=== PATIENT | male | born 1945 | race American Indian/Alaskan Native ===

== ENCOUNTER 2017-06-20 22:10 | Inpatient (IN) | payer MEDICARE, OTHER ==
[2017-06-20] MEDS ORDERED: Dextrose 5%/0.45% NS 1,000 ML IV SCH (22:30)
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
[2017-06-20 22:57] LABS: VENOUS BLOOD GAS BASE EXCESS 7.5 mmol/L (0.0-2.0); VENOUS BLOOD PH 7.43 (7.32-7.43)
[2017-06-20 23:08] LABS: ALB/GLOB RATIO 1.1 (1.1-1.8); ALKALINE PHOSPHATASE 90 U/L (38-126); ALT/SGPT 29 U/L (7-56); AST/SGOT 65 U/L (17-59); BASO # 0.01 K/mm3 (0.0-2.0); BASO % 0.1 % (0.0-3.0); BILIRUBIN,TOTAL 0.8 mg/dL (0.2-1.3); BLOOD UREA NITROGEN 10 mg/dL (7-21); CALCIUM 9.4 mg/dL (8.4-10.5); CARBON DIOXIDE 28 mmol/L (21-33); CHLORIDE 100 mmol/L (98-107); GFR AFRICAN-AMERICAN > 60; GLUCOSE,RANDOM 127 mg/dL (70-110); GRAN # 11.18 (1.4-6.5); GRAN % 85.8 % (50.0-68.0); HEMATOCRIT 39.7 % (42.0-52.0); LYMPH # 0.8 (1.2-3.4); LYMPH % 6.3 % (22.0-35.0); MAGNESIUM 1.8 mg/dL (1.7-2.2); MEAN CELL VOLUME 85.6 fl (80.0-105.0); MEAN CORPUSCULAR HEMOGLOBIN 28.4 pg (25.0-35.0); MEAN CORPUSCULAR HGB CONC 33.2 g/dl (31.0-37.0); MEAN PLATELET VOLUME 9.6 fl (7.0-11.0); MONO % 7.8 % (1.0-6.0); PHOSPHOROUS 2.4 mg/dL (2.5-4.5); POTASSIUM 3.4 mmol/L (3.6-5.0); RED CELL DISTRIBUTION WIDTH 14.8 % (11.5-14.5); SODIUM 140 mmol/L (132-148); TOTAL PROTEIN 7.7 g/dL (5.8-8.3)
[2017-06-20] MEDS ORDERED: Potassium Chloride 20 mEq ER Tab PO STA (23:14)
[2017-06-20 23:18] LABS: TROPONIN I 0.01 ng/mL
[2017-06-20] MEDS ORDERED: Sodium Chloride 0.9% 1,000 ML IV STA (23:21)
[2017-06-20 23:24] LABS: INR 1.26 (0.93-1.08); PARTIAL THROMBOPLASTIN TIME 28.1 Seconds (25.1-36.5)
[2017-06-21] MEDS ORDERED: Sodium Phosphate 15 MMOLE in Sodium Chloride 0.9% 250 ML IVPB ONE (01:34)
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
[2017-06-21] MEDS ORDERED: DiphenhydrAMINE 50 mg/ml Inj IVP STA (01:56)
--- NOTE | 2017-06-21 08:48 | RAD ---
HISTORY: Sepsis Patient COMPARISON: No prior. FINDINGS: LUNGS: There is a dense left lower lobe opacity, possibly pneumonia. Followup to clearing is advised to exclude underlying neoplasm. No abnormal opacity is seen elsewhere. PLEURA: Minimal blunting of left costophrenic angle may reflect small pleural effusion. No right pleural effusion. No pneumothorax. CARDIOVASCULAR: Normal heart size. No congestive change. Left central venous infusion port. OSSEOUS STRUCTURES: No significant abnormalities. VISUALIZED UPPER ABDOMEN: Normal. OTHER FINDINGS: None. IMPRESSION: Left lower lobe opacity. Rule out pneumonia. Followup to clearing advised. Possible trace left pleural effusion.
[2017-06-21] MEDS ORDERED: Albuterol-Ipratrop 3 mg / 0.5 (3 ml) UD IH PRN (09:55)
[2017-06-21] MEDS ORDERED: cefTRIAXone 1 gm 1 GM/100 ML BAG IVPB SCH (10:00)
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
[2017-06-21] MEDS ORDERED: Vancomycin 1gm in NS 250ml 1 GM/250 ML BAG IVPB SCH (12:30)
[2017-06-21] MEDS: Azithromycin 500MG/NS 250ml 500 MG/250 ML BAG IVPB SCH (12:47)
[2017-06-21] MEDS: Albuterol-Ipratrop 3 mg / 0.5 (3 ml) UD IH SCH ×2 (13:56→20:34)
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
[2017-06-21 14:06] LABS: URINE BILIRUBIN SMALL (NEGATIVE); URINE BLOOD NEGATIVE (NEGATIVE); URINE GLUCOSE (UA) NEGATIVE (NEGATIVE); URINE KETONE 15 mg/dL (NEGATIVE); URINE LEUKOCYTE ESTERASE NEGATIVE Leu/uL (NEGATIVE); URINE PROTEIN 30 mg/dL (<30 mg/dL); URINE UROBILINOGEN 0.2 E.U./dL (<1 E.U./dL)
[2017-06-21 14:14] LABS: URINE APPEARANCE SL CLOUDY (CLEAR); URINE COLOR YELLOW (YELLOW)
[2017-06-21 14:17] LABS: URINE RBC NEGATIVE /hpf (0-2); URINE WBC 0 - 2 /hpf (0-6)
[2017-06-21] MEDS: Cefepime IV 2 gm in NS 2 GM/100 ML BAG IVPB SCH ×2 (14:47→21:54)
[2017-06-21] MEDS: Dextrose 5%/0.45% NS 1,000 ML IV SCH (14:47)
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
--- NOTE | 2017-06-21 15:39 | CT ---
PROCEDURE: CT HEAD WITHOUT CONTRAST. HISTORY: dysphagia COMPARISON: None available. TECHNIQUE: Axial computed tomography images were obtained through the head/brain without intravenous contrast. Radiation dose: Total exam DLP = 726 mGy-cm. This CT exam was performed using one or more of the following dose reduction techniques: Automated exposure control, adjustment of the mA and/or kV according to patient size, and/or use of iterative reconstruction technique. FINDINGS: HEMORRHAGE: No intracranial hemorrhage. BRAIN: No mass effect or edema. No atrophy or chronic microvascular ischemic changes. VENTRICLES: Unremarkable. No hydrocephalus. CALVARIUM: Unremarkable. PARANASAL SINUSES: Unremarkable as visualized. No significant inflammatory changes. MASTOID AIR CELLS: Unremarkable as visualized. No inflammatory changes. OTHER FINDINGS: None. IMPRESSION: No acute finding
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
[2017-06-21] MEDS: Morphine 2 mg/ml ISec IVP PRN ×2 (17:33→21:55)
[2017-06-21] MEDS: Vancomycin 1gm in NS 250ml 1 GM/250 ML BAG IVPB SCH (18:06)
--- NOTE | 2017-06-21 18:52 | US ---
PROCEDURE: Right lower extremity venous US HISTORY: Leg pain and swelling. Evaluate for DVT. PHYSICIAN(S): Kanu Benson M.D. TECHNIQUE: Duplex sonography and color-flow Doppler with graded compression were used to evaluate the deep venous system of the right lower extremity. FINDINGS: The visualized deep venous system of the right lower extremity is sonographically normal and compressible. Normal waveforms and augmentation are seen. There is no sonographic evidence for deep venous thrombosis in the visualized segments of the right lower extremity. IMPRESSION: 1. No sonographic evidence for deep venous thrombosis in the visualized segments of the right lower extremity.
--- NOTE | 2017-06-21 20:01 | CARD ---
APPROVED REPORT EKG Measurement Heart [id number] <Conclusion> Sinus tachycardia Nonspecific ST abnormality Abnormal ECG
[2017-06-21] MEDS: Budesonide 0.5 mg/2 ml Inhal Susp UD IH SCH (20:34)
[2017-06-22] MEDS: Albuterol-Ipratrop 3 mg / 0.5 (3 ml) UD IH SCH ×4 (01:28→20:32)
[2017-06-22] MEDS: Cefepime IV 2 gm in NS 2 GM/100 ML BAG IVPB SCH ×3 (05:24→22:18)
[2017-06-22] MEDS: Morphine 2 mg/ml ISec IVP PRN ×3 (05:28→20:08)
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
[2017-06-22] MEDS: Vancomycin 1gm in NS 250ml 1 GM/250 ML BAG IVPB SCH ×2 (06:35→17:42)
[2017-06-22] MEDS: Budesonide 0.5 mg/2 ml Inhal Susp UD IH SCH ×2 (07:12→20:32)
[2017-06-22 07:37] LABS: HEMATOCRIT 34.5 % (42.0-52.0); MEAN CELL VOLUME 85.6 fl (80.0-105.0); MEAN CORPUSCULAR HEMOGLOBIN 27.5 pg (25.0-35.0); MEAN CORPUSCULAR HGB CONC 32.2 g/dl (31.0-37.0); MEAN PLATELET VOLUME 9.4 fl (7.0-11.0); RED CELL DISTRIBUTION WIDTH 14.7 % (11.5-14.5); WHITE BLOOD COUNT 9.8 10^3/ul (4.5-11.0)
[2017-06-22 08:18] LABS: ALKALINE PHOSPHATASE 78 U/L (38-126); ALT/SGPT 31 U/L (7-56); AST/SGOT 60 U/L (17-59); BILIRUBIN,TOTAL 0.5 mg/dL (0.2-1.3); BLOOD UREA NITROGEN 10 mg/dL (7-21); CALCIUM 8.4 mg/dL (8.4-10.5); CARBON DIOXIDE 31 mmol/L (21-33); CHLORIDE 107 mmol/L (98-107); GFR AFRICAN-AMERICAN > 60; GLUCOSE,RANDOM 97 mg/dL (70-110); POTASSIUM 3.3 mmol/L (3.6-5.0); SODIUM 144 mmol/L (132-148); TOTAL PROTEIN 6.2 g/dL (5.8-8.3)
--- NOTE | 2017-06-22 08:34 | PN ---
PULMONARY PROGRESS NOTE SUBJECTIVE: The patient appears comfortable this morning. He is not short of breath at rest. He remains cachectic appearing. PHYSICAL EXAMINATION: VITAL SIGNS: (Last noted in the computer): Temperature is 98.2, pulse is 91, respirations 18, blood pressure 139/74. Oxygen saturation on room air is 97%. HEENT: Normocephalic, atraumatic. NECK: No JVD. CARDIOVASCULAR: Positive S1, S2. No S3 gallop. LUNGS: Crackles-left base. Much less rhonchi. No wheezing. EXTREMITIES: The patient is status post left [id number] amputation. The right lower extremity does show signs of peripheral vascular disease. There is no edema. No cyanosis or clubbing. The right calf is nontender to palpation. GI: Abdomen is soft, nontender and nondistended. Bowel sounds are positive. SKIN: No acute rash. NEUROLOGIC: Limited at the present time. IMPRESSION: 1. Left lower lobe pneumonia. 2. Acute bronchitis. 3. Wasting syndrome. 4. Severe peripheral vascular disease. 5. Mild anemia. PLAN: The patient appears comfortable this morning. He is not short of breath at rest. He does state to feeling much better overall. On physical exam, his bronchospasm is significantly less. In addition, the oxygen saturation on room air is now 97%. I will continue with the current nebulizer treatments and inhaled steroids for now. The patient remains on antibiotic therapy-as per Infectious Disease. Input by Dr. Schaefer is noted. The temperatures have now resolved. The leukocytosis has also resolved. Inputs by Neurology and Podiatry are noted. The patient's clinical status is significantly improved-compared to the initial presentation. I will discuss the above with Dr. Arias. Israel Torrez MD MTDD
--- NOTE | 2017-06-22 09:54 | CP.PCM.PN ---
Subjective - Date & Time of Evaluation Date of Evaluation: 06/22/17 Time of Evaluation: 09:52 - Subjective Subjective: 71 year old male was seen and evaluated at bedside for healed right anterior leg wound. Patient denies of any acute overnight events. Patient states that he has generalized pain in his right LE. Patient states that he is aware its due to the PVD he has and would like to see a vascular doctor. Patient denies of any other pedal complains at this time. Objective - Vital Signs/Intake and Output Vital Signs (last 24 hours): Temp Pulse Resp BP Pulse Ox 98.1 F 81 20 156/87 H 95 06/22/17 07:00 06/22/17 07:00 06/22/17 07:00 06/22/17 07:00 06/22/17 07:00 Intake and Output: 06/22/17 06/22/17 06:59 18:59 Intake Total 2440 Output Total 125 Balance 2315 - Medications Medications: Current Medications Acetaminophen (Tylenol 325mg Tab) 650 mg PO Q4H PRN PRN Reason: pain fever Albuterol/Ipratropium (Duoneb 3 Mg/0.5 Mg (3 Ml) Ud) 3 ml IH [id number] [facility] Last Admin: 06/22/17 07:12 Dose: 3 ml Albuterol/Ipratropium (Duoneb 3 Mg/0.5 Mg (3 Ml) Ud) 3 ml IH Q2H PRN PRN Reason: Shortness of Breath Budesonide (Pulmicort Respules) 0.5 mg IH [id number] [facility] Last Admin: 06/22/17 07:12 Dose: 0.5 mg Diltiazem HCl (Cardizem) 30 mg PO TID [facility] Last Admin: 06/21/17 18:08 Dose: 30 mg Famotidine (Pepcid) 40 mg PO HS [facility] Last Admin: 06/21/17 21:54 Dose: 40 mg Hydroxyzine Pamoate (Vistaril) 25 mg PO HS PRN; Protocol PRN Reason: insomnia Last Admin: 06/21/17 21:53 Dose: 25 mg Azithromycin (Zithromax 500mg In Ns) 500 mg in 250 mls @ 167 mls/hr IVPB DAILY [facility] PRN Reason: Protocol Last Admin: 06/21/17 12:47 Dose: 167 mls/hr Dextrose/Sodium Chloride (Dextrose 5%/0.45% Ns 1000 Ml) 1,000 mls @ 60 mls/hr IV .[id number] [facility] Last Admin: 06/21/17 14:47 Dose: 60 mls/hr Cefepime HCl (Maxipime 2gm) 2 gm in 100 mls @ 100 mls/hr IVPB Q8 [facility] PRN Reason: Protocol Stop: 06/26/17 14:01 Last Admin: 06/22/17 05:24 Dose: 100 mls/hr Vancomycin HCl (Vancomycin 1gm) 1 gm in 250 mls @ 167 mls/hr IVPB 0600,1800 [facility] PRN Reason: Protocol Last Admin: 06/22/17 06:35 Dose: 167 mls/hr Potassium Chloride (Potassium Chloride 20 Meq/100 Ml) 20 meq in 100 mls @ 50 mls/hr IVPB ONCE ONE Stop: 06/22/17 10:19 Last Admin: 06/22/17 08:47 Dose: 50 mls/hr Ibuprofen (Motrin Tab) 400 mg PO Q6H PRN PRN Reason: Pain, Mild (1-3) Ketorolac Tromethamine (Toradol) 30 mg IVP Q6 PRN PRN Reason: Pain, Mild (1-3) Last Admin: 06/22/17 08:47 Dose: 30 mg Morphine Sulfate (Morphine) 0.5 mg IVP Q3H PRN PRN Reason: Pain, severe (8-10) Last Admin: 06/22/17 05:28 Dose: 0.5 mg Multi-Ingredient Cream (Hydrocerin Cream) 1 ea TOP QAM [facility] Ondansetron HCl (Zofran Inj) 4 mg IVP Q6 PRN PRN Reason: Nausea/Vomiting - Labs Labs: 06/22/17 07:00 06/22/17 07:00 PT 13.8 SECONDS (9.4-12.5) H 06/20/17 22:45 INR 1.26 (0.93-1.08) H 06/20/17 22:45 APTT 28.1 Seconds (25.1-36.5) 06/20/17 22:45 - Constitutional Appears: Well, Non-toxic, No Acute Distress - Extremities Exam Extremities Exam: absent: Calf Tenderness Additional comments: Dressing is clean, dry and intact with no strike through or active drainage noted - Neurological Exam Neurological Exam: Alert, Awake, Oriented x3 - Psychiatric Exam Psychiatric exam: Normal Affect, Normal Mood Assessment and Plan - Assessment and Plan (Free Text) Assessment: 71 y/o male seen and evaluated for healed wound on the right leg Plan: Patient seen and evaluated at bedside Patient discussed in details with attending Dr. Morfin Labs, vitals and charts reviewed: afebrile, WBC @ 9.8 as of today Dressing is clean dry and intact Eucrin cream ordered; to be applied daily - Nursing order in place Multipodus boot ordered Right LE US ordered - No evidence of active DVT ABIOLA/PVR ordered for right LE Vascular consult placed - recommendations appreciated Patient is stable from podiatry standpoint - will continue to follow patient while in house
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
[2017-06-22] MEDS: Hydrocerin(120 gm) TOP SCH (10:58)
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
[2017-06-22] MEDS: Azithromycin 500MG/NS 250ml 500 MG/250 ML BAG IVPB SCH (12:59)
[2017-06-22] MEDS: Dextrose 5%/0.45% NS 1,000 ML IV SCH (16:36)
[2017-06-23] MEDS: Albuterol-Ipratrop 3 mg / 0.5 (3 ml) UD IH SCH ×4 (01:00→19:23)
[2017-06-23] MEDS: Morphine 2 mg/ml ISec IVP PRN ×3 (02:35→22:00)
[2017-06-23] MEDS: Dextrose 5%/0.45% NS 1,000 ML IV SCH ×2 (04:29→14:04)
[2017-06-23] MEDS: Vancomycin 1gm in NS 250ml 1 GM/250 ML BAG IVPB SCH ×2 (05:56→17:57)
[2017-06-23] MEDS: Cefepime IV 2 gm in NS 2 GM/100 ML BAG IVPB SCH ×3 (05:56→22:20)
[2017-06-23 07:39] LABS: HEMATOCRIT 32.8 % (42.0-52.0); MEAN CELL VOLUME 85.2 fl (80.0-105.0); MEAN CORPUSCULAR HEMOGLOBIN 27.8 pg (25.0-35.0); MEAN CORPUSCULAR HGB CONC 32.6 g/dl (31.0-37.0); MEAN PLATELET VOLUME 8.9 fl (7.0-11.0); RED CELL DISTRIBUTION WIDTH 14.7 % (11.5-14.5); WHITE BLOOD COUNT 8.8 10^3/ul (4.5-11.0)
[2017-06-23] MEDS: Budesonide 0.5 mg/2 ml Inhal Susp UD IH SCH ×2 (07:51→19:23)
--- NOTE | 2017-06-23 08:46 | PN ---
DATE: 06/23/2017 PULMONARY PROGRESS NOTE SUBJECTIVE: The patient appears comfortable this morning. He is not short of breath at rest. PHYSICAL EXAMINATION: VITAL SIGNS: (Last noted in the computer): Temperature is 98.2, pulse is 64, respirations are 18, and blood pressure is 112/63. Oxygen saturation on room air is 97%. HEENT: Normocephalic and atraumatic. NECK: No JVD. CARDIOVASCULAR: Positive S1 and S2. No S3 gallop. LUNGS: Less crackles - left base. Very minimal/less rhonchi. No wheezing. EXTREMITIES: The patient is status post left [id number] amputation. The right lower extremity does show signs of peripheral vascular disease. There is no edema. There is no cyanosis or clubbing. The right calf is nontender to palpation. GASTROINTESTINAL: Abdomen is soft, nontender and nondistended. Bowel sounds are positive. SKIN: No acute rash. NEUROLOGIC: Exam is limited at the present time. IMPRESSION 1. Left lower lobe pneumonia. 2. Acute bronchitis. 3. Wasting syndrome. 4. Severe peripheral vascular disease. 5. Mild anemia. PLAN: The patient appears very comfortable this morning. He is not short of breath at rest. He does state to feeling much better overall. On physical exam, his bronchospasm continues to resolve. In addition, the oxygen saturation on room air is now 97%. I will continue the current nebulizer treatments and inhaled steroids for now. I would continue with the antibiotic coverage as per Infectious Diseases. Input by Dr. Schaefer is noted. The fevers have now resolved. The leukocytosis has also resolved. Clinical status of the patient is significantly improved - compared to the initial presentation. I will discuss the above with Dr. Arias. Israel Torrez MD MTDGuerda
[2017-06-23 09:14] LABS: ALKALINE PHOSPHATASE 73 U/L (38-126); ALT/SGPT 35 U/L (7-56); AST/SGOT 63 U/L (17-59); BILIRUBIN,TOTAL 0.5 mg/dL (0.2-1.3); BLOOD UREA NITROGEN 10 mg/dL (7-21); CALCIUM 8.6 mg/dL (8.4-10.5); CARBON DIOXIDE 30 mmol/L (21-33); CHLORIDE 107 mmol/L (98-107); GFR AFRICAN-AMERICAN > 60; GLUCOSE,RANDOM 95 mg/dL (70-110); POTASSIUM 3.6 mmol/L (3.6-5.0); SODIUM 143 mmol/L (132-148); TOTAL PROTEIN 6.1 g/dL (5.8-8.3)
[2017-06-23 09:21] LABS: ALB/GLOB RATIO 0.9 (1.1-1.8)
--- NOTE | 2017-06-23 10:22 | US ---
PROCEDURE: Lower extremity ABIOLA exam HISTORY: Peripheral vascular disease with pain. AVS left BKA. Previous right 1st toe amputation. PHYSICIAN(S): Kanu Benson MD. FINDINGS: The right resting ABIOLA is mildly to moderately abnormal, 0.69. The brachial systolic pressures are symmetric. The right high thigh pressure and waveform is normal. There is a significant gradient across the right thigh. The right calf PVR waveform is moderately blunted and does not augment. Findings are consistent with right SFA occlusive disease. There is a 32 mm gradient across the right lower leg. However, the right ankle PVR waveform is relatively normal. This could represent right tibial occlusive disease. IMPRESSION: 1. Moderately abnormal right ABIOLA at rest. 2. Right SFA occlusive disease. 3. Right tibial occlusive disease. However, the right ankle PVR waveform is relatively normal. 4. Status post left BKA.
[2017-06-23] MEDS: Hydrocerin(120 gm) TOP SCH (10:35)
[2017-06-23] MEDS: Azithromycin 500MG/NS 250ml 500 MG/250 ML BAG IVPB SCH (10:39)
--- NOTE | 2017-06-23 12:00 | CP.PCM.PN ---
Subjective - Date & Time of Evaluation Date of Evaluation: 06/23/17 Time of Evaluation: 11:55 - Subjective Subjective: 71 year old male was seen and evaluated at bedside for healed right anterior leg wound. Patient denies of any acute overnight events. Patient states that he has generalized pain in his right LE. Patient states that he is aware its due to the PVD he has and would like to see a vascular doctor. Patient denies of any other pedal complains at this time. Objective - Vital Signs/Intake and Output Vital Signs (last 24 hours): Temp Pulse Resp BP Pulse Ox 98.6 F 89 20 166/72 H 98 06/23/17 08:51 06/23/17 10:34 06/23/17 08:51 06/23/17 10:34 06/23/17 08:51 Intake and Output: 06/23/17 06/23/17 06:59 18:59 Intake Total 600 Output Total 200 Balance 400 - Medications Medications: Current Medications Acetaminophen (Tylenol 325mg Tab) 650 mg PO Q4H PRN PRN Reason: pain fever Albuterol/Ipratropium (Duoneb 3 Mg/0.5 Mg (3 Ml) Ud) 3 ml IH [id number] [facility] Last Admin: 06/23/17 07:51 Dose: 3 ml Albuterol/Ipratropium (Duoneb 3 Mg/0.5 Mg (3 Ml) Ud) 3 ml IH Q2H PRN PRN Reason: Shortness of Breath Budesonide (Pulmicort Respules) 0.5 mg IH [id number] [facility] Last Admin: 06/23/17 07:51 Dose: 0.5 mg Diltiazem HCl (Cardizem) 30 mg PO TID [facility] Last Admin: 06/23/17 10:34 Dose: 30 mg Famotidine (Pepcid) 40 mg PO HS [facility] Last Admin: 06/22/17 22:19 Dose: 40 mg Hydroxyzine Pamoate (Vistaril) 25 mg PO HS PRN; Protocol PRN Reason: insomnia Last Admin: 06/22/17 23:07 Dose: 25 mg Azithromycin (Zithromax 500mg In Ns) 500 mg in 250 mls @ 167 mls/hr IVPB DAILY [facility] PRN Reason: Protocol Last Admin: 06/23/17 10:39 Dose: 167 mls/hr Dextrose/Sodium Chloride (Dextrose 5%/0.45% Ns 1000 Ml) 1,000 mls @ 60 mls/hr IV .[id number] [facility] Last Admin: 06/23/17 04:29 Dose: Not Given Cefepime HCl (Maxipime 2gm) 2 gm in 100 mls @ 100 mls/hr IVPB Q8 [facility] PRN Reason: Protocol Stop: 06/26/17 14:01 Last Admin: 06/23/17 05:56 Dose: 100 mls/hr Vancomycin HCl (Vancomycin 1gm) 1 gm in 250 mls @ 167 mls/hr IVPB 0600,1800 [facility] PRN Reason: Protocol Last Admin: 06/23/17 05:56 Dose: 167 mls/hr Ibuprofen (Motrin Tab) 400 mg PO Q6H PRN PRN Reason: Pain, Mild (1-3) Ketorolac Tromethamine (Toradol) 30 mg IVP Q6 PRN PRN Reason: Pain, Mild (1-3) Last Admin: 06/23/17 08:30 Dose: 30 mg Morphine Sulfate (Morphine) 0.5 mg IVP Q3H PRN PRN Reason: Pain, severe (8-10) Last Admin: 06/23/17 02:35 Dose: 0.5 mg Multi-Ingredient Cream (Hydrocerin Cream) 1 ea TOP QAM [facility] Last Admin: 06/23/17 10:35 Dose: 1 applic Ondansetron HCl (Zofran Inj) 4 mg IVP Q6 PRN PRN Reason: Nausea/Vomiting - Labs Labs: 06/23/17 07:00 06/23/17 07:00 PT 13.8 SECONDS (9.4-12.5) H 06/20/17 22:45 INR 1.26 (0.93-1.08) H 06/20/17 22:45 APTT 28.1 Seconds (25.1-36.5) 06/20/17 22:45 - Constitutional Appears: Well, Non-toxic, No Acute Distress - Back Exam Additional comments: Dressing is clean, dry, and intact. Patient has a multipodus boot on in bed. - Neurological Exam Neurological Exam: Alert, Awake, Oriented x3 - Psychiatric Exam Psychiatric exam: Normal Affect, Normal Mood Assessment and Plan - Assessment and Plan (Free Text) Assessment: 71 y/o male seen and evaluated for healed wound on the right leg Plan: Patient seen and evaluated at bedside Patient discussed in details with attending Dr. Morfin Labs, vitals and charts reviewed: afebrile, WBC @ 8.8 as of today Eucrin cream ordered; to be applied daily - Nursing order in place Multipodus boot ordered - to be worn at all times while in bed Right LE US ordered - No evidence of active DVT Arterial duplex: : Right ABIOLA: 0.69; Moderately abnormal right ABIOLA at rest. Right SFA occlusive disease. right tibial occlusive disease, however the right ankle PVR waveform is relatively normal Vascular consult placed Patient is stable from podiatry standpoint - please re-consult podiatry if needed
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
[2017-06-23 16:19] VITALS: O2SAT 96
--- NOTE | 2017-06-23 16:46 | CP.PCM.PCO ---
Physician Communication Note - Physician Communication Note Physician Communication Note: pt will be seen tomorrow, no acute distress, d/w case supervisor
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
[2017-06-24] MEDS: Albuterol-Ipratrop 3 mg / 0.5 (3 ml) UD IH SCH ×4 (01:01→13:32)
[2017-06-24] MEDS: Morphine 2 mg/ml ISec IVP PRN ×2 (04:22→11:52)
[2017-06-24] MEDS: Cefepime IV 2 gm in NS 2 GM/100 ML BAG IVPB SCH ×2 (05:31→13:47)
[2017-06-24] MEDS: Vancomycin 1gm in NS 250ml 1 GM/250 ML BAG IVPB SCH (05:31)
[2017-06-24] MEDS: Dextrose 5%/0.45% NS 1,000 ML IV SCH (05:32)
[2017-06-24 07:10] LABS: HEMATOCRIT 33.4 % (42.0-52.0); MEAN CORPUSCULAR HEMOGLOBIN 27.2 pg (25.0-35.0); MEAN PLATELET VOLUME 8.9 fl (7.0-11.0); RED CELL DISTRIBUTION WIDTH 14.6 % (11.5-14.5); WHITE BLOOD COUNT 7.3 10^3/ul (4.5-11.0)
[2017-06-24] MEDS: Budesonide 0.5 mg/2 ml Inhal Susp UD IH SCH (07:35)
--- NOTE | 2017-06-24 07:53 | PN ---
DATE: 06/24/2017 PULMONARY PROGRESS NOTE SUBJECTIVE: The patient appears very comfortable this morning. He is not short of breath at rest. PHYSICAL EXAMINATION: VITAL SIGNS: (Last noted in the computer): Temperature is 98.7, pulse is 82, respirations are 18, and blood pressure is 144/86. Oxygen saturation on room air is 96% to 98%. HEENT: Normocephalic and atraumatic. No JVD. CARDIOVASCULAR: Positive S1 and S2. No S3, gallop. LUNGS: Less crackles - left base. Very minimal/much less rhonchi. No wheezing. EXTREMITIES: The patient is status post left [id number] amputation. The right lower extremity also shows signs of peripheral vascular disease. There is no edema. There is no cyanosis or clubbing. The right calf is nontender to palpation. GASTROINTESTINAL: Abdomen is soft, nontender and nondistended. Bowel sounds are positive. SKIN: No acute rash. NEUROLOGIC: Exam is limited at the present time. IMPRESSION 1. Left lower lobe pneumonia. 2. Acute bronchitis. 3. Wasting syndrome. 4. Severe peripheral vascular disease. 5. Mild anemia. PLAN: The patient appears very comfortable this morning. He is not short of breath at rest. He does state to feeling much, much better overall. On physical exam, his bronchospasm continues to resolve. In addition, the oxygen saturation on room air is now 96% to 98%. I will continue the current nebulizer treatments and inhaled steroids for now. The patient remains on antibiotic therapy - as per infectious disease. The temperatures have resolved. The leukocytosis has also resolved. Input by Ear, Nose and Throat is also noted. Clinical status of the patient is significantly improved - compared to the initial presentation. I do advise checking an outpatient chest x-ray--for comparison--after the completion of antibiotic therapy. I will discuss the above with Dr. Arias. Israel Torrez MD MTDGuerda
[2017-06-24 08:28] VITALS: BP 152/84; PULSE 68; RESP 19; TEMP 98.2
[2017-06-24 08:35] LABS: ALB/GLOB RATIO 0.9 (1.1-1.8); ALKALINE PHOSPHATASE 74 U/L (38-126); ALT/SGPT 25 U/L (7-56); AST/SGOT 64 U/L (17-59); BILIRUBIN,TOTAL 0.5 mg/dL (0.2-1.3); BLOOD UREA NITROGEN 6 mg/dL (7-21); CALCIUM 8.5 mg/dL (8.4-10.5); CARBON DIOXIDE 30 mmol/L (21-33); CHLORIDE 102 mmol/L (98-107); GFR AFRICAN-AMERICAN > 60; GLUCOSE,RANDOM 101 mg/dL (70-110); POTASSIUM 3.5 mmol/L (3.6-5.0); SODIUM 140 mmol/L (132-148); TOTAL PROTEIN 6.4 g/dL (5.8-8.3)
[2017-06-24] MEDS ORDERED: Ciprofloxacin/Dexamethasone OTIC SUSP AD SCH (10:00)
[2017-06-24] MEDS ORDERED: Fluticasone Nasal 50 mcg/Spray NS SCH (10:00)
[2017-06-24] MEDS: Hydrocerin(120 gm) TOP SCH (11:54)
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
[2017-06-24] MEDS: Azithromycin 500MG/NS 250ml 500 MG/250 ML BAG IVPB SCH (13:57)
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
== END 2017-06-24 15:25 | DRG 871 ==
LOC: ED 22:10 → ERH 23:18 → 5RNO 06-21 01:15 → OBSVTOIN 06-21 09:42
PROVIDERS: ADMIT Internal Medicine; ATTEND Family Medicine
DX: A41.9 Sepsis, unspecified organism (principal); J18.9 Pneumonia, unspecified organism; E46 Unspecified protein-calorie malnutrition; R64 Cachexia; I11.0 Hypertensive heart disease with heart failure; I50.9 Heart failure, unspecified; E83.39 Other disorders of phosphorus metabolism; L97.819 Non-pressure chronic ulcer of other part of right lower leg with unspecified severity; Z68.1 Body mass index [BMI] 19.9 or less, adult; E86.0 Dehydration; R62.7 Adult failure to thrive; R13.19 Other dysphagia; I73.9 Peripheral vascular disease, unspecified; H10.9 Unspecified conjunctivitis; E78.00 Pure hypercholesterolemia, unspecified; R09.82 Postnasal drip; E87.6 Hypokalemia; J20.9 Acute bronchitis, unspecified; D64.9 Anemia, unspecified; Z89.512 Acquired absence of left leg below knee; Z87.891 Personal history of nicotine dependence